=== PATIENT | female | born 1930 | race Caucasian/White ===

== ENCOUNTER 2017-07-11 14:53 | Emergency (ER) | payer MEDICARE ==
[~2017-07-11] VITALS: Ht 177.8 cm; Wt 80.0 kg
[~2017-07-11 14:53] MED LIST: AMLO10TA2 PO; CEFD300C37 PO; CLOP75TA PO; IRBE300T40 PO; LACT1CAP24 PO; METR500T PO; POLY17PO5 PO
[2017-07-11] MEDS ORDERED: DIAZ5TAB4 PO (15:06)
[2017-07-11] MEDS ORDERED: RIVA10TA PO (15:06)
[2017-07-11] MEDS ORDERED: SODIUM CHLORIDE FLUSH 10ML SYR IVF ONE (15:30)
[2017-07-11] MEDS ORDERED: SODIUM CHLORIDE 0.9% 1,000ML IVBOLUS ONE (15:30)
[2017-07-11 15:47] LABS: HEMATOCRIT 42.3 % (34.6-47.8); HEMOGLOBIN 13.9 g/dL (11.7-16.4); WHITE BLOOD COUNT 8.2 x10^3/uL (3.4-10)
[2017-07-11 15:58] LABS: BLOOD UREA NITROGEN 18 mg/dL (7-18)
[2017-07-11 16:04] LABS: ASPARTATE AMINO TRANSFERASE 18 U/L (15-37)
[2017-07-11 16:09] LABS: IS PT STATUS REG ER OR PRE ER? YES
[2017-07-11 17:05] VITALS: BP 146/69
== END 2017-07-11 17:34 | disposition home or self-care (01) ==
LOC: ED 17:19
DX: R55 Syncope and collapse (principal); I10 Essential (primary) hypertension; Z90.49 Acquired absence of other specified parts of digestive tract
CPT/HCPCS: 36415; 70450; 80053; 84484; 85025; 85610; 85730; 93005; 99285

== ENCOUNTER 2018-01-09 13:42 | Emergency (ER) | payer MEDICARE ==
[~2018-01-09] VITALS: Ht 167.6 cm; Wt 79.1 kg
[~2018-01-09 13:42] MED LIST changes: +DIAZ5TAB4 PO; +RIVA10TA PO
[2018-01-09] MEDS ORDERED: MECLIZINE CHEWABLE 25 MG TAB ONE (13:59)
[2018-01-09] MEDS ORDERED: MECLIZINE CHEWABLE 25 MG TAB PO ONE (14:00)
[2018-01-09 14:11] LABS: BASOPHILS # (AUTO) 0.06 x10^3/uL (0-0.1); BASOPHILS % (AUTO) 1 % (0-1); EOSINOPHILS # (AUTO) 0.15 x10^3/uL (0-0.4); EOSINOPHILS % (AUTO) 3 % (1-7); LYMPHOCYTES # (AUTO) 1.78 x10^3/uL (1-3.4); LYMPHOCYTES % (AUTO) 32 % (22-44); MD NO; MEAN CORPUSCULAR HEMOGLOBIN 30.6 pg (27.0-34.8); MEAN CORPUSCULAR HGB CONC 33.4 g/dL (32.4-35.8); MEAN CORPUSCULAR VOLUME 91.5 fL (80-100); MEAN PLATELET VOLUME 8.3 fL (7.4-10.4); MONOCYTES # (AUTO) 0.51 x10^3/uL (0.2-0.8); MONOCYTES % (AUTO) 9 % (2-9); NEUTROPHILS # (AUTO) 3.06 x10^3/uL (1.8-6.8); NEUTROPHILS % (AUTO) 55 % (42-75); PLATELET COUNT 267 x10^3/uL (130-400); RED BLOOD COUNT 4.65 x10^6/uL (3.82-5.3); RED CELL DISTRIBUTION WIDTH 14.2 % (9.6-15.2)
[2018-01-09 14:19] LABS: INTERNATIONAL NORMALIZED RATIO 1.01 (0.93-1.1); PROTHROMBIN TIME 10.4 Seconds (9.6-11.5)
[2018-01-09 14:22] LABS: ALANINE AMINOTRANSFERASE 20 U/L (12-78); ALBUMIN 3.5 g/dL (3.4-5.0); ANION GAP 6 mmol/L (5-15); CALCIUM 8.8 mg/dL (8.5-10.1); CHLORIDE 102 mmol/L (98-107); CREATININE 0.83 mg/dL (0.55-1.02)
[2018-01-09 14:27] LABS: ALKALINE PHOSPHATASE 131 U/L (45-117); BILIRUBIN,TOTAL 0.4 mg/dL (0.2-1.0); TOTAL PROTEIN 7.4 g/dL (6.4-8.2); TROPONIN I < 0.015 ng/mL (0.000-0.045)
[2018-01-09 14:43] LABS: MICROSCOPIC AUTO
[2018-01-09 14:45] LABS: CULTURE INDICATED? YES
[2018-01-09 15:28] VITALS: BP 156/65
== END 2018-01-09 16:00 | disposition home or self-care (01) ==
LOC: ED 13:50
DX: R42 Dizziness and giddiness (principal); N30.00 Acute cystitis without hematuria; I10 Essential (primary) hypertension; I48.91 Unspecified atrial fibrillation
CPT/HCPCS: 36415; 70450; 80053; 81001; 84484; 85025; 85610; 85730; 87077; 87086; 87186; 93005; 99285

== ENCOUNTER 2018-05-19 14:27 | Emergency (ER) | payer MEDICARE ==
[~2018-05-19] VITALS: Ht 170.2 cm; Wt 79.0 kg
[~2018-05-19 14:27] MED LIST changes: -AMLO10TA2 PO; +AMLO10TA6 PO
[2018-05-19 15:19] LABS: BASOPHILS # (AUTO) 0.09 x10^3/uL (0-0.1); BASOPHILS % (AUTO) 1 % (0-1); EOSINOPHILS # (AUTO) 0.17 x10^3/uL (0-0.4); EOSINOPHILS % (AUTO) 2 % (1-7); LYMPHOCYTES # (AUTO) 2.11 x10^3/uL (1-3.4); LYMPHOCYTES % (AUTO) 24 % (22-44); MD NO; MEAN CORPUSCULAR HEMOGLOBIN 30.4 pg (27.0-34.8); MEAN CORPUSCULAR HGB CONC 33.6 g/dL (32.4-35.8); MEAN CORPUSCULAR VOLUME 90.4 fL (80-100); MONOCYTES # (AUTO) 0.58 x10^3/uL (0.2-0.8); MONOCYTES % (AUTO) 7 % (2-9); NEUTROPHILS # (AUTO) 5.86 x10^3/uL (1.8-6.8); NEUTROPHILS % (AUTO) 67 % (42-75); PLATELET COUNT 268 x10^3/uL (130-400); RED BLOOD COUNT 4.91 x10^6/uL (3.82-5.3); RED CELL DISTRIBUTION WIDTH 13.8 % (9.6-15.2)
[2018-05-19 15:29] LABS: ALBUMIN 3.8 g/dL (3.4-5.0); ANION GAP 10 mmol/L (5-15); CALCIUM 9.2 mg/dL (8.5-10.1); CHLORIDE 106 mmol/L (98-107); CREATININE 0.69 mg/dL (0.55-1.02)
[2018-05-19 15:33] LABS: TROPONIN I < 0.015 ng/mL (0.000-0.045)
[2018-05-19 15:47] LABS: INTERNATIONAL NORMALIZED RATIO 1.01 (0.93-1.1); PROTHROMBIN TIME 10.4 Seconds (9.6-11.5)
[2018-05-19 16:06] LABS: MICROSCOPIC AUTO
[2018-05-19 16:27] LABS: CULTURE INDICATED? YES
[2018-05-19] MEDS ORDERED: CEFDINIR 300 MG CAPSULE ONE (16:51)
[2018-05-19 16:55] VITALS: BP 148/69
[2018-05-19] MEDS ORDERED: CEFDINIR 300 MG CAPSULE PO ONE (17:00)
== END 2018-05-19 18:11 | disposition home or self-care (01) ==
LOC: ED 18:05
DX: N30.00 Acute cystitis without hematuria (principal); I10 Essential (primary) hypertension; I48.91 Unspecified atrial fibrillation; Z90.49 Acquired absence of other specified parts of digestive tract; Z86.73 Personal history of transient ischemic attack (TIA), and cerebral infarction without residual deficits
CPT/HCPCS: 36415; 80048; 81001; 82040; 84484; 85025; 85610; 85730; 87077; 87086; 87186; 93005; 99285

== ENCOUNTER 2020-06-20 12:58 | Emergency (ER) | payer MEDICARE ==
[~2020-06-20] VITALS: Ht 167.6 cm; Wt 78.5 kg
[~2020-06-20 12:58] MED LIST changes: +AMLO-211 PO; -AMLO10TA6 PO; +AMOX1TAB64 PO; +ARGI500C2 PO; +ASCO100018 PO; +CHOL100014 PO; +DOCU-131 PO; +MAGN300C PO; -RIVA10TA PO; +RIVA10TA2 PO; +UBID100C41 PO
[2020-06-20 13:48] LABS: ALBUMIN 3.1 g/dL (3.4-5.0); ANION GAP 6 mmol/L (5-15); CALCIUM 8.3 mg/dL (8.5-10.1); CHLORIDE 100 mmol/L (98-107)
[2020-06-20 13:53] LABS: ALANINE AMINOTRANSFERASE 29 U/L (12-78); ALKALINE PHOSPHATASE 129 U/L (45-117); BILIRUBIN,TOTAL 0.8 mg/dL (0.2-1.0); CREATININE 0.76 mg/dL (0.55-1.02); TOTAL PROTEIN 7.1 g/dL (6.4-8.2)
[2020-06-20 13:54] LABS: BASOPHILS % (AUTO) 1 % (0-1); EOSINOPHILS % (AUTO) 1 % (1-7); LYMPHOCYTES % (AUTO) 18 % (22-44); MD NO; MEAN CORPUSCULAR HEMOGLOBIN 30.2 pg (27.0-34.8); MEAN CORPUSCULAR HGB CONC 33.5 g/dL (32.4-35.8); MEAN PLATELET VOLUME 8.8 fL (7.4-10.4); MONOCYTES % (AUTO) 9 % (2-9); NEUTROPHILS % (AUTO) 72 % (42-75); PLATELET COUNT 243 x10^3/uL (130-400); RED BLOOD COUNT 4.44 x10^6/uL (3.82-5.3); RED CELL DISTRIBUTION WIDTH 13.4 % (9.6-15.2)
[2020-06-20] MEDS ORDERED: MORPHINE SULFATE 4 MG/ML, 1ML ONE ×2 (17:38→20:41)
[2020-06-20] MEDS ORDERED: ONDANSETRON 2MG/ML, 2ML ONE (17:38)
[2020-06-20] MEDS: MORPHINE SULFATE 4 MG/ML, 1ML IVPush PRN ×2 (17:49→20:55)
--- NOTE | 2020-06-20 17:51 | NUR ---
medicated per emar placed on 2l nc for pox ,90 d/t narcotic admin patient/family updated on estimated poc
[2020-06-20] MEDS ORDERED: ONDANSETRON 2MG/ML, 2ML IVPush ONE (18:00)
[2020-06-20] MEDS ORDERED: OMNIPAQUE 350 MG/ML, 100ML BOTTLE ONE (18:15)
[2020-06-20] MEDS ORDERED: METRONIDAZOLE PMX 500MG/100ML 100 ML IV ONE (18:30)
[2020-06-20] MEDS ORDERED: CEFOTETAN PMX 1GM/50ML 50 ML IVPB ONE (18:30)
--- NOTE | 2020-06-20 18:39 | NUR ---
With reassessment-pain improved to 2/10 Weaned to room air as morphine sedation worn off All testing resulted-placed up for recheck Provider to bedside plan to admit for iv abx
[2020-06-20 18:52] LABS: MICROSCOPIC INDICATED
[2020-06-20] MEDS ORDERED: METRONIDAZOLE PMX 500MG/100ML 100 ML ONE (18:54)
--- NOTE | 2020-06-20 19:06 | NUR ---
MOVED TO HOSPITAL BED MEDICATED PER EMAR-ABX REPORT TO SHANELLE TAYLOR
--- NOTE | 2020-06-20 19:14 | NUR ---
pt in hospital bed, son at bedside, no distress at this time, and on cr monitor. report and care received from dayshift RN
--- NOTE | 2020-06-20 19:59 | NUR ---
cefotetan ordered from pharmacy at this time.
[2020-06-20 21:04] VITALS: BP 140/70
--- NOTE | 2020-06-20 21:05 | NUR ---
Antibiotics done, pt complaining of discomfort and pain meds given, pt a&ox4
== END 2020-06-20 21:53 | disposition home or self-care (01) ==
LOC: ED 19:25
DX: K57.92 Diverticulitis of intestine, part unspecified, without perforation or abscess without bleeding (principal); I10 Essential (primary) hypertension; I48.91 Unspecified atrial fibrillation; Z86.73 Personal history of transient ischemic attack (TIA), and cerebral infarction without residual deficits
CPT/HCPCS: 36415; 74021; 74177; 80053; 81001; 85025; 87077; 87086; 87186; 96365; 96366; 96368; 96375; 96376; 99285; J2270; J2405; Q9967